=== PATIENT | female | born 1965 | race Caucasian/White ===

== ENCOUNTER → 2017-03-02 | Outpatient (CLI) | payer MEDICARE ==
[~2017-03-02] MED LIST: CALCIUM 500 +1 EAC3 PO; ENDOCET 7.5-321 EACH PO; ESTRADERM 0.05 M1 EA TD; LEVOTHYROXINE125 MCG PO; LIDEX CREAM 0.030 GM EXT; NEURONTIN 300300 MG PO; SERTRALINE HCL100 MG PO; SIMVASTATIN20 MG PO; TIZANIDINE HCL4 MG PO; VITAMIN B-1000 MCG/M IM; VITAMIN D5000 UNIT PO; VOLTAREN100 GM TP; WELLBUTRIN SR100 MG PO; ZYRTEC10 MG PO
== END ==
LOC: EXRD 09:59
DX: M54.9 Dorsalgia, unspecified (principal); M54.16 Radiculopathy, lumbar region; R20.9 Unspecified disturbances of skin sensation; R07.9 Chest pain, unspecified; R07.81 Pleurodynia
CPT/HCPCS: 71020; 71101

== ENCOUNTER 2017-03-05 17:37 | Emergency (ER) | payer MEDICARE ==
[2017-03-05 21:46] LABS: HEMOGLOBIN 14.7 gm/dl (12.3-15.3); RED BLOOD COUNT 4.76 M/UL (4.00-5.10); WHITE BLOOD COUNT 9.7 K/UL (4.5-11.0)
[2017-03-05 22:08] LABS: BUN/CREATININE RATIO 14 (0-10)
[2017-04-23] MEDS ORDERED: ENDOCET 7.5-321 EACH PO (08:21)
[2017-04-23] MEDS ORDERED: ESTRADERM 0.05 M1 EA TD (08:22)
[2017-04-23] MEDS ORDERED: NEURONTIN 300300 MG PO (08:23)
[2017-04-23] MEDS ORDERED: SIMVASTATIN20 MG PO (08:24)
[2017-04-23] MEDS ORDERED: LEVOTHYROXINE125 MCG PO (08:24)
[2017-04-23] MEDS ORDERED: TIZANIDINE HCL4 MG PO (08:25)
[2017-04-23] MEDS ORDERED: SERTRALINE HCL100 MG PO (08:26)
[2017-04-23] MEDS ORDERED: WELLBUTRIN SR100 MG PO (08:27)
[2017-04-23] MEDS ORDERED: VOLTAREN100 GM TP (08:27)
[2017-04-23] MEDS ORDERED: VITAMIN D5000 UNIT PO (08:28)
[2017-04-23] MEDS ORDERED: VITAMIN B-1000 MCG/M IM (08:29)
[2017-04-23] MEDS ORDERED: LIDEX CREAM 0.030 GM EXT (08:30)
[2017-04-23] MEDS ORDERED: CALCIUM 500 +1 EAC3 PO (08:30)
[2017-04-23] MEDS ORDERED: ZYRTEC10 MG PO (08:30)
== END 2017-03-06 02:25 | disposition home or self-care (01) ==
LOC: ER1 17:37
PROVIDERS: Emergency Medicine
DX: R07.9 Chest pain, unspecified (principal); Z88.1 Allergy status to other antibiotic agents
CPT/HCPCS: 36415; 71275; 80053; 81001; 82150; 82550; 82553; 83690; 83874; 83880; 84484; 85025; 85379; 87086; 93005; 96360; 99285; J7050; Q9963

== ENCOUNTER → 2017-03-12 | Outpatient (CLI) | payer MEDICARE | LOC: EMI 12:42 | DX: M54.16 Radiculopathy, lumbar region (principal); R20.9 Unspecified disturbances of skin sensation; M51.16 Intervertebral disc disorders with radiculopathy, lumbar region | CPT/HCPCS: 72148 ==

== ENCOUNTER → 2017-03-16 | Outpatient (CLI) | payer MEDICARE | LOC: EXRD 14:10 | DX: Z13.820 Encounter for screening for osteoporosis (principal) | CPT/HCPCS: 77080 ==

== ENCOUNTER → 2017-04-09 | Outpatient (CLI) | payer MEDICARE | LOC: HEART 5 08:23 | DX: R07.9 Chest pain, unspecified (principal); R06.00 Dyspnea, unspecified; I27.2 Other secondary pulmonary hypertension; I08.3 Combined rheumatic disorders of mitral, aortic and tricuspid valves | CPT/HCPCS: 78452; 93306; A9502; J2785 ==

== ENCOUNTER → 2021-10-29 | Outpatient (CLI) | payer MEDICARE | LOC: EXRD 12:59 | DX: R06.02 Shortness of breath (principal) | CPT/HCPCS: 71046 ==

== ENCOUNTER → 2021-11-12 | Outpatient (CLI) | payer MEDICARE | LOC: HEART 5 08:30 | DX: R00.2 Palpitations (principal); R06.02 Shortness of breath; R68.89 Other general symptoms and signs; R07.9 Chest pain, unspecified; R13.10 Dysphagia, unspecified; K21.9 Gastro-esophageal reflux disease without esophagitis; K76.0 Fatty (change of) liver, not elsewhere classified; E03.4 Atrophy of thyroid (acquired); I35.1 Nonrheumatic aortic (valve) insufficiency | CPT/HCPCS: 76536; 76705; 78452; 93306; A9502; J2785 ==

== ENCOUNTER → 2021-11-18 | Outpatient (CLI) | payer MEDICARE ==
[~2021-11-18] VITALS: Ht 160 cm; Wt 99.8 kg
== END ==
LOC: EROP 13:51
DX: U07.1 COVID-19 (principal); Z23 Encounter for immunization; E11.9 Type 2 diabetes mellitus without complications; I10 Essential (primary) hypertension
CPT/HCPCS: M0247; Q0247

== ENCOUNTER → 2021-11-29 | Outpatient (CLI) | payer MEDICARE | LOC: NM 11-19 09:00 | DX: R10.9 Unspecified abdominal pain (principal); R11.0 Nausea | CPT/HCPCS: 78227; A9537; J2805 ==

== ENCOUNTER → 2022-01-10 | Outpatient (CLI) | payer MEDICARE | LOC: KOH-I 12:44 | DX: M50.30 Other cervical disc degeneration, unspecified cervical region (principal) | CPT/HCPCS: 72141 ==

== ENCOUNTER → 2022-07-17 | Outpatient (CLI) | payer MEDICARE | LOC: MAMO 12:39 | DX: Z12.31 Encounter for screening mammogram for malignant neoplasm of breast (principal) | CPT/HCPCS: 77063; 77067 ==